=== PATIENT | female | born 1955 | race American Indian/Alaskan Native ===

== ENCOUNTER 2018-05-18 04:14 | Emergency (ER) | payer OTHER ==
[2018-05-18 04:21] VITALS: BP 124/85
--- NOTE | 2018-05-18 08:26 | Emergency Department Report ---
ED ENT HPI - General Chief complaint: Earache Stated complaint: ROGERS,EAR,NECK PAIN Time Seen by Provider: 05/18/18 07:51 Source: patient Mode of arrival: Ambulatory Limitations: No Limitations - History of Present Illness Initial comments: This is a 63-year-old -[place] female presents with earache and headache for 4 days. Past medical history of diabetes type 2, hypertension, and migraines. Patient states when symptoms started she thought it was a migraine and took Imitrex 4 days ago which improved symptoms for few hours. Patient reports headache is throbbing and constant. Patient states her headache hurts for 4-10 hours, in frontal region. Patient states her right ear has a throbbing, sharp sensation. Pain is 10 out of 10 on pain scale and constant. Patient denies aura, visual changes, drainage, tinnitus, fever, and recent loose infection. MD complaint: ear pain (right ear) Onset/Timin -: days(s) Location: R ear Severity: severe Severity scale (0 -10): 10 Quality: aching, constant, other (throbbing) Consistency: constant Improves with: none Worsens with: position, eating, other (light) - Related Data Home Medications Medication Instructions Recorded Confirmed Last Taken AtorvaSTATin [Lipitor] 10 mg PO QHS 03/08/16 03/08/16 Unknown Omeprazole [PriLOSEC] 40 mg PO QDAY 03/08/16 03/08/16 Unknown Potassium Chloride [Klor-Con 10] 20 meq PO BID 03/08/16 03/08/16 Unknown SUMAtriptan succinate [SUMAtriptan 100 mg PO QDAY 03/08/16 03/08/16 Unknown Succinate] Topiramate [Topamax TAB] 50 mg PO BID 03/08/16 03/08/16 Unknown Triamter/Hctz 75-50 mg (Nf) 1 tab PO QDAY 03/08/16 03/08/16 Unknown [Maxzide 75-50 mg] Previous Rx's Medication Instructions Recorded Last Taken Type Amoxicillin/K Clav Tab [Augmentin 1 tab PO Q12HR #20 tab 03/08/16 Unknown Rx 875 mg] HYDROcodone/APAP 5-325 [[place] 1 each PO Q4HR PRN #12 tablet 03/08/16 Unknown Rx 5/325] predniSONE [Deltasone] 20 mg PO QDAY #5 tab 03/08/16 Unknown Rx Amoxicillin 500 mg PO BID #20 capsule 05/18/18 Unknown Rx Ibuprofen [Motrin 800 MG tab] 800 mg PO Q8HR PRN #15 tablet 05/18/18 Unknown Rx Allergies Allergy/AdvReac Type Severity Reaction Status Date / Time No Known Allergies Allergy Verified 03/08/16 16:35 ED Dental HPI - General Chief complaint: Earache Stated complaint: ROGERS,EAR,NECK PAIN Time Seen by Provider: 05/18/18 07:51 Source: patient Mode of arrival: Ambulatory Limitations: No Limitations - Related Data Home Medications Medication Instructions Recorded Confirmed Last Taken AtorvaSTATin [Lipitor] 10 mg PO QHS 03/08/16 03/08/16 Unknown Omeprazole [PriLOSEC] 40 mg PO QDAY 03/08/16 03/08/16 Unknown Potassium Chloride [Klor-Con 10] 20 meq PO BID 03/08/16 03/08/16 Unknown SUMAtriptan succinate [SUMAtriptan 100 mg PO QDAY 03/08/16 03/08/16 Unknown Succinate] Topiramate [Topamax TAB] 50 mg PO BID 03/08/16 03/08/16 Unknown Triamter/Hctz 75-50 mg (Nf) 1 tab PO QDAY 03/08/16 03/08/16 Unknown [Maxzide 75-50 mg] Previous Rx's Medication Instructions Recorded Last Taken Type Amoxicillin/K Clav Tab [Augmentin 1 tab PO Q12HR #20 tab 03/08/16 Unknown Rx 875 mg] HYDROcodone/APAP 5-325 [[place] 1 each PO Q4HR PRN #12 tablet 03/08/16 Unknown Rx 5/325] predniSONE [Deltasone] 20 mg PO QDAY #5 tab 03/08/16 Unknown Rx Amoxicillin 500 mg PO BID #20 capsule 05/18/18 Unknown Rx Ibuprofen [Motrin 800 MG tab] 800 mg PO Q8HR PRN #15 tablet 05/18/18 Unknown Rx Allergies Allergy/AdvReac Type Severity Reaction Status Date / Time No Known Allergies Allergy Verified 03/08/16 16:35 ED Review of Systems ROS: Stated complaint: ROGERS,EAR,NECK PAIN Other details as noted in HPI Constitutional: denies: chills, fever ENT: ear pain (right ear). denies: throat pain, congestion Respiratory: denies: cough, shortness of breath, wheezing Cardiovascular: denies: chest pain, palpitations Gastrointestinal: denies: abdominal pain, nausea, diarrhea Neurological: headache. denies: weakness, paresthesias Psychiatric: denies: anxiety, depression ED Past Medical Hx - Past Medical History Hx Hypertension: Yes Hx Diabetes: Yes Hx Headaches / Migraines: Yes Additional medical history: high cholesterol. migraines - Surgical History Additional Surgical History: hysterectomy - Social History Smoking Status: Never Smoker Substance Use Type: None - Medications Home Medications: Home Medications Medication Instructions Recorded Confirmed Last Taken Type Amoxicillin/K Clav Tab [Augmentin 1 tab PO Q12HR #20 tab 03/08/16 Unknown Rx 875 mg] AtorvaSTATin [Lipitor] 10 mg PO QHS 03/08/16 03/08/16 Unknown History HYDROcodone/APAP 5-325 [[place] 1 each PO Q4HR PRN #12 tablet 03/08/16 Unknown Rx 5/325] Omeprazole [PriLOSEC] 40 mg PO QDAY 03/08/16 03/08/16 Unknown History Potassium Chloride [Klor-Con 10] 20 meq PO BID 03/08/16 03/08/16 Unknown History SUMAtriptan succinate [SUMAtriptan 100 mg PO QDAY 03/08/16 03/08/16 Unknown History Succinate] Topiramate [Topamax TAB] 50 mg PO BID 03/08/16 03/08/16 Unknown History Triamter/Hctz 75-50 mg (Nf) 1 tab PO QDAY 03/08/16 03/08/16 Unknown History [Maxzide 75-50 mg] predniSONE [Deltasone] 20 mg PO QDAY #5 tab 03/08/16 Unknown Rx Amoxicillin 500 mg PO BID #20 capsule 05/18/18 Unknown Rx Ibuprofen [Motrin 800 MG tab] 800 mg PO Q8HR PRN #15 tablet 05/18/18 Unknown Rx ED Physical Exam - General Limitations: No Limitations General appearance: alert, in no apparent distress, obese - ENT ENT exam: Present: mucous membranes moist. Absent: TM's normal bilaterally ( erythematous, bulging, right TM, nontender mastoid bone, no drainage) - Neck Neck exam: Present: full ROM, lymphadenopathy (1 cm palpable right cervical lymph node, mobile, nontender). Absent: tenderness, meningismus - Respiratory Respiratory exam: Present: normal lung sounds bilaterally. Absent: respiratory distress - Cardiovascular Cardiovascular Exam: Present: regular rate, normal rhythm. Absent: systolic murmur, diastolic murmur, rubs, gallop - GI/Abdominal GI/Abdominal exam: Present: soft, normal bowel sounds. Absent: organomegaly, mass - Neurological Exam Neurological exam: Present: alert, oriented X3 - Psychiatric Psychiatric exam: Present: normal affect, normal mood - Skin Skin exam: Present: warm, dry, intact, normal color. Absent: rash ED Course Vital Signs 05/18/18 05/18/18 04:19 05:54 Temperature 98.5 F 98.5 F Pulse Rate 112 H 100 H Respiratory 18 16 Rate Blood Pressure 124/85 124/85 O2 Sat by Pulse 98 98 Oximetry ED Medical Decision Making - Medical Decision Making Patient is stable and was examined by me. Vitals normal. Physical assessment susceptible of serous otitis media of right ear and migraine. Patient given Toradol 30 mg IM and Zofran ODT 4 mg whatsoever with ER. Start amoxicillin and ibuprofen. Patient will continue to take Imitrex for acute migraine. Discussed plan with mother and she agreed with plan. Discharged home in stable condition. Follow up with PCP in 24-72 hours. Critical care attestation.: If time is entered above; I have spent that time in minutes in the direct care of this critically ill patient, excluding procedure time. ED Disposition Clinical Impression: Otalgia of right ear Migraine Qualifiers: Migraine type: without aura Status migrainosus presence: with status migrainosus Intractability: not intractable Qualified Code(s): G43.001 - Migraine without aura, not intractable, with status migrainosus Otitis media of right ear Qualifiers: Otitis media type: suppurative Chronicity: acute Recurrence: not specified as recurrent Spontaneous tympanic membrane rupture: without spontaneous rupture Qualified Code(s): H66.001 - Acute suppurative otitis media without spontaneous rupture of ear drum, right ear Disposition: -01 TO HOME OR SELFCARE Is pt being admited?: No Does the pt Need Aspirin: No Condition: Stable Instructions: Otitis Media (ED), Migraine Headache (ED) Additional Instructions: Give tylenol or ibuprofen for pain every 6-8 hours. Take antibiotics as prescribed to avoid recurrence of the ear infection. Avoid high altitudes, may worsen the pain during ear infection. Take medication at start of headache. Moderate caffeine intake. Eat at scheduled times or 3 meals a day with snacks. Follow up with primary care provider in 24-72 hours. Prescriptions: Amoxicillin 500 mg PO BID #20 capsule Ibuprofen [Motrin 800 MG tab] 800 mg PO Q8HR PRN #15 tablet PRN Reason: Pain , Severe (7-10) Referrals: YEIMI BASS MD [Staff Physician] - 3-5 Days [facility] [Provider Group] - 3-5 Days [facility] [Provider Group] - 3-5 Days Time of Disposition: 08:36 Print Language: SWEDISH
[2018-05-18] MEDS ORDERED: TORADOL IM ONE (08:32)
[2018-05-18] MEDS ORDERED: ZOFRAN ODT PO ONE (08:32)
== END 2018-05-18 08:58 | disposition home or self-care (01) ==
LOC: ED 04:14
DX: H66.001 Acute suppurative otitis media without spontaneous rupture of ear drum, right ear (principal); G43.001 Migraine without aura, not intractable, with status migrainosus; I10 Essential (primary) hypertension; E11.9 Type 2 diabetes mellitus without complications; E78.00 Pure hypercholesterolemia, unspecified; Z90.710 Acquired absence of both cervix and uterus; Z79.899 Other long term (current) drug therapy
CPT/HCPCS: 96372; 99282; J1885; Q0162

== ENCOUNTER 2018-07-19 20:04 | Emergency (ER) | payer OTHER ==
--- NOTE | 2018-07-20 00:37 | Emergency Department Report ---
ED Headache HPI - General Chief Complaint: Headache Stated Complaint: EAR PAIN Time Seen by Provider: 07/20/18 00:21 - History of Present Illness Initial Comments: Extremities 30 after [place] female comes in for headache and bilateral ear pain started on Thursday. Patient reports that the pain is probably. She reports that she's taken Tylenol Sinus last dose at 4 PM 1 Thursday. She took 2 doses on Thursday. She denies any discharge from the ears no recent swimming. She does report having history of ear infections last one was 2 months ago. She reports right ear is worse than left but both of them her. Allergies/Adverse Reactions: Allergies No Known Allergies Allergy (Verified 03/08/16 16:35) Home Medications: Ambulatory Orders Amoxicillin/K Clav Tab [Augmentin 875 mg] 1 tab PO Q12HR #20 tab 03/08/16 AtorvaSTATin [Lipitor] 10 mg PO QHS 03/08/16 HYDROcodone/APAP 5-325 [[place] 5/325] 1 each PO Q4HR PRN #12 tablet 03/08/16 Omeprazole [PriLOSEC] 40 mg PO QDAY 03/08/16 Potassium Chloride [Klor-Con 10] 20 meq PO BID 03/08/16 SUMAtriptan succinate [SUMAtriptan Succinate] 100 mg PO QDAY 03/08/16 Topiramate [Topamax TAB] 50 mg PO BID 03/08/16 Triamter/Hctz 75-50 mg (Nf) [Maxzide 75-50 mg] 1 tab PO QDAY 03/08/16 predniSONE [Deltasone] 20 mg PO QDAY #5 tab 03/08/16 Amoxicillin 500 mg PO BID #20 capsule 05/18/18 Ibuprofen [Motrin 800 MG tab] 800 mg PO Q8HR PRN #15 tablet 05/18/18 Clindamycin [Clindamycin CAP] 600 mg PO BID 10 Days #20 capsule 07/20/18 Ibuprofen [Motrin 600 MG tab] 600 mg PO Q8H PRN 10 Days #30 tablet 07/20/18 ED Review of Systems ROS: Stated complaint: EAR PAIN Other details as noted in HPI Comment: All other systems reviewed and negative Constitutional: denies: chills, fever ENT: ear pain. denies: throat pain ED Past Medical Hx - Past Medical History Previous Medical History?: Yes Hx Hypertension: Yes Hx Diabetes: Yes Hx Headaches / Migraines: Yes Additional medical history: high cholesterol. migraines - Surgical History Past Surgical History?: Yes Additional Surgical History: hysterectomy. bilateral tigger fingers - Social History Smoking Status: Current Every Day Smoker Substance Use Type: None - Medications Home Medications: Home Medications Medication Instructions Recorded Confirmed Last Taken Type Amoxicillin/K Clav Tab [Augmentin 1 tab PO Q12HR #20 tab 03/08/16 Unknown Rx 875 mg] AtorvaSTATin [Lipitor] 10 mg PO QHS 03/08/16 03/08/16 Unknown History HYDROcodone/APAP 5-325 [[place] 1 each PO Q4HR PRN #12 tablet 03/08/16 Unknown Rx 5/325] Omeprazole [PriLOSEC] 40 mg PO QDAY 03/08/16 03/08/16 Unknown History Potassium Chloride [Klor-Con 10] 20 meq PO BID 03/08/16 03/08/16 Unknown History SUMAtriptan succinate [SUMAtriptan 100 mg PO QDAY 03/08/16 03/08/16 Unknown History Succinate] Topiramate [Topamax TAB] 50 mg PO BID 03/08/16 03/08/16 Unknown History Triamter/Hctz 75-50 mg (Nf) 1 tab PO QDAY 03/08/16 03/08/16 Unknown History [Maxzide 75-50 mg] predniSONE [Deltasone] 20 mg PO QDAY #5 tab 03/08/16 Unknown Rx Amoxicillin 500 mg PO BID #20 capsule 05/18/18 Unknown Rx Ibuprofen [Motrin 800 MG tab] 800 mg PO Q8HR PRN #15 tablet 05/18/18 Unknown Rx Clindamycin [Clindamycin CAP] 600 mg PO BID 10 Days #20 capsule 07/20/18 Unknown Rx Ibuprofen [Motrin 600 MG tab] 600 mg PO Q8H PRN 10 Days #30 07/20/18 Unknown Rx tablet ED Physical Exam - General Limitations: No Limitations General appearance: alert, in no apparent distress - Head Head exam: Present: atraumatic, normocephalic - Eye Eye exam: Present: normal appearance, EOMI - ENT ENT exam: Present: mucous membranes moist, TM's normal bilaterally, other ( bilateral tenderness to the mastoid bones right greater than left) - Neck Neck exam: Present: normal inspection, full ROM. Absent: lymphadenopathy - Respiratory Respiratory exam: Present: normal lung sounds bilaterally. Absent: respiratory distress - Cardiovascular Cardiovascular Exam: Present: regular rate, normal rhythm. Absent: systolic murmur, diastolic murmur, rubs, gallop - Extremities Exam Extremities exam: Present: full ROM - Neurological Exam Neurological exam: Present: alert, oriented X3 - Psychiatric Psychiatric exam: Present: normal affect, normal mood - Skin Skin exam: Present: warm, dry, intact, normal color. Absent: rash ED Course Vital Signs 07/19/18 20:24 Temperature 98.2 F Pulse Rate 107 H Respiratory 18 Rate Blood Pressure 139/94 O2 Sat by Pulse 99 Oximetry Critical care attestation.: If time is entered above; I have spent that time in minutes in the direct care of this critically ill patient, excluding procedure time. ED Disposition Clinical Impression: Mastoiditis of right side Disposition: DC-01 TO HOME OR SELFCARE Is pt being admited?: No Does the pt Need Aspirin: No Condition: Stable Instructions: Mastoiditis in Children (ED) Additional Instructions: Complete antibiotics as prescribed. Pain medication as needed. And follow-up with the ear nose and throat provider. Prescriptions: Clindamycin [Clindamycin CAP] 600 mg PO BID 10 Days #20 capsule Ibuprofen [Motrin 600 MG tab] 600 mg PO Q8H PRN 10 Days #30 tablet PRN Reason: Pain Referrals: PRIMARY CAREMD [Primary Care Provider] - 3-5 Days MARGARET YANG MD [Staff Physician] - 3-5 Days ANDRESSA JIMENEZ MD [Staff Physician] - 3-5 Days Forms: Work/School Release Form(ED)
[2018-07-20] MEDS ORDERED: MOTRIN PO ONE (00:57)
[2018-07-20 01:32] VITALS: BP 130/95
== END 2018-07-20 01:34 | disposition home or self-care (01) ==
LOC: ED 20:04
DX: H70.91 Unspecified mastoiditis, right ear (principal); I10 Essential (primary) hypertension; E11.9 Type 2 diabetes mellitus without complications; E78.00 Pure hypercholesterolemia, unspecified; G43.909 Migraine, unspecified, not intractable, without status migrainosus; F17.200 Nicotine dependence, unspecified, uncomplicated; Z90.710 Acquired absence of both cervix and uterus
CPT/HCPCS: 99282

== ENCOUNTER 2019-11-27 13:27 | Emergency (ER) | payer OTHER ==
[2019-11-27] MEDS ORDERED: SUMAtriptan SUCCINATE 6 MG/0.5 ML INJ SUB-Q ONE (14:06)
--- NOTE | 2019-11-27 14:39 | Emergency Department Report ---
ED Headache HPI - General Chief Complaint: Earache Stated Complaint: HEADACHE LT EARACHE Time Seen by Provider: 11/27/19 14:06 - History of Present Illness Initial Comments: 64-year-old -[place]ym[place] female patient with history of hypertension, HLD, and migraines presents with complaints of left-sided migraine x2 days. Patient states she ran out of her sumatriptan. She reports this migraine does feel like her normal migraine and denies worst headache of her life. She also denies any vision changes, nausea/vomiting, neck pain, numbness/tingling/weakness, confusion, or difficulty with speech or ambulation. She rates her current pain as a 9/10 in severity Allergies/Adverse Reactions: Allergies No Known Allergies Allergy (Verified 03/08/16 16:35) Home Medications: Ambulatory Orders AtorvaSTATin 10 mg PO QHS 03/08/16 Omeprazole [PriLOSEC] 40 mg PO QDAY 03/08/16 Potassium Chloride [Klor-Con 10] 20 meq PO BID 03/08/16 Topiramate [Topamax TAB] 50 mg PO BID 03/08/16 Triamter/Hctz 75-50 mg (Nf) [Maxzide 75-50 mg] 1 tab PO QDAY 03/08/16 Ibuprofen [Motrin] 800 mg PO Q8HR PRN #30 tablet 09/27/19 SUMAtriptan succinate [SUMAtriptan Succinate] 100 mg PO QDAY PRN #9 tab 11/27/19 ED Review of Systems ROS: Stated complaint: HEADACHE LT EARACHE Other details as noted in HPI Constitutional: denies: chills, fever Eyes: denies: vision change Respiratory: denies: cough, shortness of breath Cardiovascular: denies: chest pain Gastrointestinal: denies: abdominal pain, nausea, vomiting Skin: denies: rash, lesions Neurological: headache. denies: numbness, paresthesias, confusion ED Past Medical Hx - Past Medical History Previous Medical History?: Yes Hx Hypertension: Yes Hx Diabetes: Yes Hx Headaches / Migraines: Yes Additional medical history: high cholesterol. migraines - Surgical History Past Surgical History?: Yes Additional Surgical History: hysterectomy. bilateral tigger fingers - Social History Smoking Status: Never Smoker Substance Use Type: None - Medications Home Medications: Home Medications Medication Instructions Recorded Confirmed Last Taken Type AtorvaSTATin 10 mg PO QHS 03/08/16 03/08/16 Unknown History Omeprazole [PriLOSEC] 40 mg PO QDAY 03/08/16 03/08/16 Unknown History Potassium Chloride [Klor-Con 10] 20 meq PO BID 03/08/16 03/08/16 Unknown History Topiramate [Topamax TAB] 50 mg PO BID 03/08/16 03/08/16 Unknown History Triamter/Hctz 75-50 mg (Nf) 1 tab PO QDAY 03/08/16 03/08/16 Unknown History [Maxzide 75-50 mg] Ibuprofen [Motrin] 800 mg PO Q8HR PRN #30 tablet 09/27/19 Unknown Rx SUMAtriptan succinate [SUMAtriptan 100 mg PO QDAY PRN #9 tab 11/27/19 Unknown Rx Succinate] ED Physical Exam - General Limitations: No Limitations General appearance: alert, in no apparent distress - Head Head exam: Present: atraumatic, normocephalic - Eye Eye exam: Present: normal appearance, PERRL - ENT ENT exam: Present: mucous membranes moist - Neck Neck exam: Present: normal inspection. Absent: tenderness - Extremities Exam Extremities exam: Present: normal inspection - Back Exam Back exam: Present: normal inspection - Neurological Exam Neurological exam: Present: alert, oriented X3, CN II-XII intact, normal gait. Absent: motor sensory deficit - Expanded Neurological Exam Expanded Cerebellar function: Finger to Nose: Normal, Romberg: Normal Sensory exam: Upper Extremity Light Touch: Normal, Lower Extremity Light Touch: Normal Motor strength exam: RUE: 5, LUE: 5, RLE: 5, LLE: 5 - Psychiatric Psychiatric exam: Present: normal affect, normal mood - Skin Skin exam: Present: warm, dry, intact, normal color. Absent: rash ED Course Vital Signs 11/27/19 13:56 Temperature 99.3 F Pulse Rate 77 Respiratory 18 Rate Blood Pressure 160/96 O2 Sat by Pulse 99 Oximetry ED Medical Decision Making - Medical Decision Making Patient here with complaints of left-sided migraine. She has history of migraines and states this does feel like her normal migraine. Neuro exam is normal. Patient denies any red flag symptoms. Patient given sumatriptan subcu here in the ED and states her headache has completely resolved. Patient states she ran out of her sumatriptan, refill given. Patient's vitals are stable. She is well-appearing and stable for discharge home. Recommend follow-up with her neurologist. Discussed strict return precautions in detail with patient who verbalizes understanding. Critical care attestation.: If time is entered above; I have spent that time in minutes in the direct care of this critically ill patient, excluding procedure time. ED Disposition Clinical Impression: Migraine without aura Qualifiers: Status migrainosus presence: without status migrainosus Intractability: not intractable Qualified Code(s): G43.009 - Migraine without aura, not intractable, without status migrainosus Disposition: DC- TO HOME OR SELFCARE Is pt being admited?: No Condition: Stable Instructions: Migraine Headache (ED) Additional Instructions: Please follow with your neurologist in 5 to 7 days. Prescriptions: SUMAtriptan succinate [SUMAtriptan Succinate] 100 mg PO QDAY PRN #9 tab PRN Reason: Migraine Headache
[2019-11-27 15:24] VITALS: BP 140/91
== END 2019-11-27 15:25 | disposition home or self-care (01) ==
LOC: ED 13:27
DX: G43.009 Migraine without aura, not intractable, without status migrainosus (principal); I10 Essential (primary) hypertension; E11.9 Type 2 diabetes mellitus without complications; E78.00 Pure hypercholesterolemia, unspecified; Z90.710 Acquired absence of both cervix and uterus; Z79.899 Other long term (current) drug therapy
CPT/HCPCS: 96372; 99282; J3030

== ENCOUNTER 2020-08-22 10:32 | Emergency (ER) | payer MEDICARE ==
[2020-08-22 10:43] VITALS: BP 142/95
--- NOTE | 2020-08-22 11:08 | Emergency Department Report ---
Chief Complaint: Headache Stated Complaint: HEADACHE/EAR ACHE/CONSIPATED - HPI History of Present Illness: 65-year-old -[place] female presents to the emergency room for intermittent headache with a history of migraines but has not taken anything for it. And right ear pain around the outside. She also reports constipation and takes MiraLAX but has not taken that either. - Exam Vital Signs: Vital Signs 08/22/20 10:40 Temperature 98.2 F Pulse Rate 106 H Respiratory 18 Rate Blood Pressure 142/95 O2 Sat by Pulse 99 Oximetry Physical Exam: Gen: alert oriented NAD Cardic: regular rate and rhythm no murmurs appreciated Resp: Clear to auscultation bilateral no wheezing no rales or rhonchi. Abdomen: Soft nontender nondistended normal bowel sounds. Mini neuro: Normal finger to nose exam, [id number] normal, Romberg neg, strengh 4/5 all extrimities, Alert and oriented time 3 Crainal nerve II-IIX intact MSE screening note: Focused history and physical exam performed. Due to findings the following was ordered: 65-year-old -[place] female presents to the emergency room for intermittent headache with a history of migraines but has not taken anything for it. And right ear pain around the outside. She also reports constipation and takes MiraLAX but has not taken that either. Patient is referred to urgent care for her primary care provider. ED Disposition for MSE Disposition: MED SCREENING EXAM-LEFT Is pt being admited?: No Does the pt Need Aspirin: No Condition: Stable Additional Instructions: [facility]: [facility] Accepting new patients Office information Address [address] [place] [address] [place] [address] [place] Get directions Try taking ibuprofen 600 to 800 mg every 6-8 hours Tylenol 1000 mg every 4-6 hours. You can use MiraLAX and warm tea coffee or water to help with your constipation. Is very important for you to follow-up with a primary care provider.
== END 2020-08-22 15:42 | disposition left against medical advice (07) ==
LOC: ED 10:32
DX: R51.9 Headache, unspecified (principal); Z53.21 Procedure and treatment not carried out due to patient leaving prior to being seen by health care provider
CPT/HCPCS: 82962

== ENCOUNTER 2022-01-14 00:50 | Emergency (ER) | payer MEDICARE ==
[2022-01-14] MEDS ORDERED: SUMAtriptan SUCCINATE 50 MG TAB PO ONE (05:51)
[2022-01-14 06:55] VITALS: BP 144/89
--- NOTE | 2022-01-14 07:25 | Emergency Department Report ---
ED Headache HPI - General Chief Complaint: Headache Stated Complaint: HEADACHE X 3DAYS Time Seen by Provider: 01/14/22 05:50 - History of Present Illness Initial Comments: Six 66-year-old female with past medical history of recurrent migraine headaches presents emerged department complaining of having a usual migraine flareup but has run out of her Imitrex and has no more pills to take. She presents emergency department requesting an Imitrex p.o. as she is unable to fill her prescriptions as it is too soon. She reports no loss of bowel bladder, no seizure activity, no fevers, chills, sweats. No visual changes, no ringing in the ears, no presyncope, no chest pain, shortness of breath, no neck pain, no rashes, no new medications, no recent foreign travel or long travel she reports no sick contacts. No suspicion for coronavirus. Quality: mild Allergies/Adverse Reactions: Allergies No Known Allergies Allergy (Verified 04/12/20 16:26) Home Medications: Ambulatory Orders AtorvaSTATin 10 mg PO QHS 03/08/16 Omeprazole [PriLOSEC] 40 mg PO QDAY 03/08/16 Potassium Chloride [Klor-Con 10] 20 meq PO BID 03/08/16 Topiramate [Topamax TAB] 50 mg PO BID 03/08/16 Triamter/Hctz 75-50 mg (Nf) [Maxzide 75-50 mg] 1 tab PO QDAY 03/08/16 Ibuprofen [Motrin] 800 mg PO Q8HR PRN #30 tablet 09/27/19 SUMAtriptan SUCCINATE [Imitrex] 100 mg PO PRN PRN #7 tablet 04/12/20 Amoxicillin [Amoxicillin TAB] 875 mg PO BID #20 tablet 06/14/20 traMADoL [Ultram] 50 mg PO Q6HR PRN #10 tablet 06/14/20 SUMAtriptan succinate [SUMAtriptan Succinate] 100 mg PO QDAY PRN #9 tab 01/14/22 ED Review of Systems ROS: Stated complaint: HEADACHE X 3DAYS Other details as noted in HPI Comment: All other systems reviewed and negative ED Past Medical Hx - Past Medical History Previous Medical History?: Yes Hx Hypertension: Yes Hx Diabetes: Yes Hx Headaches / Migraines: Yes Additional medical history: high cholesterol. migraines - Surgical History Past Surgical History?: Yes Additional Surgical History: hysterectomy. bilateral trigger fingers - Social History Smoking Status: Current Some Day Smoker Substance Use Type: None - Medications Home Medications: Home Medications Medication Instructions Recorded Confirmed Last Taken Type AtorvaSTATin 10 mg PO QHS 03/08/16 03/08/16 Unknown History Omeprazole [PriLOSEC] 40 mg PO QDAY 03/08/16 03/08/16 Unknown History Potassium Chloride [Klor-Con 10] 20 meq PO BID 03/08/16 03/08/16 Unknown History Topiramate [Topamax TAB] 50 mg PO BID 03/08/16 03/08/16 Unknown History Triamter/Hctz 75-50 mg (Nf) 1 tab PO QDAY 03/08/16 03/08/16 Unknown History [Maxzide 75-50 mg] Ibuprofen [Motrin] 800 mg PO Q8HR PRN #30 tablet 09/27/19 Unknown Rx SUMAtriptan SUCCINATE [Imitrex] 100 mg PO PRN PRN #7 tablet 04/12/20 Unknown Rx Amoxicillin [Amoxicillin TAB] 875 mg PO BID #20 tablet 06/14/20 Unknown Rx traMADoL [Ultram] 50 mg PO Q6HR PRN #10 tablet 06/14/20 Unknown Rx SUMAtriptan succinate [SUMAtriptan 100 mg PO QDAY PRN #9 tab 01/14/22 Unknown Rx Succinate] ED Physical Exam - General Limitations: No Limitations General appearance: alert, in no apparent distress - Head Head exam: Present: atraumatic, normocephalic - Eye Eye exam: Present: normal appearance, PERRL, EOMI Pupils: Present: normal accommodation - ENT ENT exam: Present: mucous membranes moist - Neck Neck exam: Present: normal inspection - Respiratory Respiratory exam: Present: normal lung sounds bilaterally. Absent: respiratory distress, wheezes, rales, rhonchi - Cardiovascular Cardiovascular Exam: Present: regular rate, normal rhythm. Absent: bradycardia, tachycardia, systolic murmur, diastolic murmur, rubs, gallop - GI/Abdominal GI/Abdominal exam: Present: soft, normal bowel sounds - Extremities Exam Extremities exam: Present: normal inspection, normal capillary refill - Back Exam Back exam: Present: normal inspection. Absent: CVA tenderness (R), CVA tenderness (L) - Neurological Exam Neurological exam: Present: alert, oriented X3, CN II-XII intact - Psychiatric Psychiatric exam: Present: normal affect, normal mood - Skin Skin exam: Present: warm, dry, intact, normal color. Absent: rash ED Course Vital Signs 01/14/22 01/14/22 00:52 06:55 Temperature 98.9 F Pulse Rate 88 84 Respiratory 16 12 Rate Blood Pressure 137/85 144/89 [Right] O2 Sat by Pulse 99 100 Oximetry ED Medical Decision Making - Medical Decision Making 66-year-old female with emergency department with her usual stable migraine headaches requesting a Imitrex pill. She did not hemodynamically and neurologically stable throughout her entire emergency room visit. Plan she will provide with 1 Imitrex pills and and given a short prescription for home to receive an Imitrex refill until she can follow-up with her primary care provider or neurologist to adjust or renew her medications. Critical care attestation.: If time is entered above; I have spent that time in minutes in the direct care of this critically ill patient, excluding procedure time. ED Disposition Clinical Impression: Migraines Disposition: 01 HOME / SELF CARE / HOMELESS Is pt being admited?: No Does the pt Need Aspirin: No Condition: Stable Instructions: Recurrent Migraine Headache, [id number] Prescriptions: SUMAtriptan succinate [SUMAtriptan Succinate] 100 mg PO QDAY PRN #9 tab PRN Reason: Migraine Headache Referrals: PRIMARY CARE, [Referring] - 3-5 Days
== END 2022-01-14 06:55 | disposition home or self-care (01) ==
LOC: ED 00:50
DX: G43.909 Migraine, unspecified, not intractable, without status migrainosus (principal); I10 Essential (primary) hypertension; E78.00 Pure hypercholesterolemia, unspecified; F17.200 Nicotine dependence, unspecified, uncomplicated; Z90.710 Acquired absence of both cervix and uterus; Z79.899 Other long term (current) drug therapy
CPT/HCPCS: 99282